=== PATIENT | female | born 1955 | race Hispanic/Latino ===

== ENCOUNTER 2021-11-20 12:00 | Inpatient (IN) | payer OTHER ==
[~2021-11-20] VITALS: Ht 154.9 cm; Wt 84.8 kg
[2021-11-20 12:24] LABS: BASOPHILS % (AUTO) 0.4 % (0.0-5.0); EOSINOPHILS % (AUTO) 0.7 % (0.0-8.0); HEMATOCRIT 46.3 % (36-48); LYMPHOCYTES % (AUTO) 25.5 % (21.0-51.0); MEAN CORPUSCULAR HEMOGLOBIN 31.3 pg (27.0-33.0); MEAN CORPUSCULAR HGB CONC 35.6 g/dL (32.0-36.0); MEAN CORPUSCULAR VOLUME 87.7 fL (79-99); MONOCYTES % (AUTO) 6.8 % (3.0-13.0); NEUTROPHILS % (AUTO) 63.9 % (40.0-77.0); NUCLEATED RED BLOOD CELLS 0.1 % (0.0-0.19); PLATELET COUNT (AUTO) 326 K/uL (130-400); RED BLOOD CELL COUNT(AUTO) 5.28 MIL/uL (4.00-5.50); RED CELL DISTRIBUTION WIDTH 13.7 % (11.0-15.5)
[2021-11-20 12:30] LABS: CREATININE 0.7 mg/dL (0.5-1.5)
[2021-11-20] MEDS ORDERED: FAMOTIDINE 20MG VIAL IV ONE (12:30)
[2021-11-20] MEDS ORDERED: ONDANSETRON 4MG INJ IVP ONE (12:30)
[2021-11-20] MEDS ORDERED: MORPHINE 4 MG SYG IVP ONE ×2 (12:30→14:30)
[2021-11-20] MEDS ORDERED: 0.9%NACL 1000ML 1,000 ML IV ONE (12:30)
[2021-11-20 12:34] LABS: ALBUMIN 3.5 g/dL (3.5-5.0); BILIRUBIN,TOTAL 0.9 mg/dL (0.2-1.0); TOTAL PROTEIN, SERUM 7.4 g/dL (6.0-8.3)
[2021-11-20] MEDS ORDERED: IOHEXOL 350 MG/ML 100ML INFUS..BTL IV ONE (13:14)
[2021-11-20] MEDS ORDERED: POTASSIUM BICARB/CIT AC 25 MEQ TABLET.EFF PO ONE (13:30)
[2021-11-20] MEDS ORDERED: CARB-38 PO (15:31)
[2021-11-20] MEDS ORDERED: LISI40TA9 PO (15:31)
[2021-11-20] MEDS ORDERED: POLY17PO4 PO (15:31)
[2021-11-20] MEDS ORDERED: ROPI1TAB13 PO (15:31)
[2021-11-20] MEDS ORDERED: MONT-39 PO (15:31)
[2021-11-20] MEDS ORDERED: FLUO40CA49 PO (15:31)
[2021-11-20] MEDS ORDERED: BUDE10.2 IH (15:31)
[2021-11-20] MEDS ORDERED: MILK500C PO (15:31)
[2021-11-20] MEDS ORDERED: ESOM40CA54 PO (15:31)
[2021-11-20] MEDS ORDERED: CHOL2000 PO (15:31)
[2021-11-20] MEDS ORDERED: METF-444 PO (15:31)
[2021-11-20] MEDS ORDERED: ASCO500W7 PO (15:31)
[2021-11-20] MEDS ORDERED: FISH1CAP27 PO (15:31)
[2021-11-20] MEDS ORDERED: THIAMINE HCL 100 MG/ML 2ML VIAL IVP SCH (16:00)
[2021-11-20] MEDS ORDERED: KETOROLAC 15MG/ML VIAL (15MG/ML) IV PRN (16:00)
[2021-11-20] MEDS ORDERED: KCL 20 MEQ ERTAB PO ONE (16:00)
[2021-11-20] MEDS: PANTOPRAZOLE 40 MG/VIAL IVP SCH (16:42)
[2021-11-20] MEDS: LACTATED RINGERS 1000ML 1,000 ML IV SCH (16:42)
[2021-11-20 16:53] LABS: APPEARANCE,URINE CLEAR (CLEAR); BILIRUBIN,URINE NEGATIVE (NEGATIVE); COLOR,URINE YELLOW (YELLOW); GLUCOSE, URINE (UA) NEGATIVE (NEGATIVE); KETONES,URINE 15 mg/dL (NEGATIVE); LEUKOCYTE ESTERASE ,URINE NEGATIVE (NEGATIVE); NITRATE,URINE NEGATIVE (NEGATIVE); OCCULT BLOOD,URINE NEGATIVE (NEGATIVE); PH,URINE 5.5 (5.0-8.0); PROTEIN,URINE NEGATIVE (NEGATIVE); UROBILINOGEN,URINE 0.2 mg/dL (0.2-1.0)
[2021-11-20 17:00] LABS: HEMOGLOBIN A1C 6.8 % (4.0-6.0)
[2021-11-20] MEDS: CARBIDOPA-LEVODOPA 25-100 TAB PO SCH ×2 (17:00→20:39)
[2021-11-20] MEDS: ROPINIROLE HCL 1 MG TABLET PO SCH ×2 (17:00→20:38)
[2021-11-20 17:06] LABS: INR 0.99 (0.85-1.15); PROTHROMBIN TIME 10.8 SEC (9.6-11.6)
[2021-11-20 17:07] LABS: PARTIAL THROMBOPLASTIN TIME 25.2 SEC (26.3-35.5)
[2021-11-20 17:11] LABS: CRP QUANTITATIVE 22.6 mg/L (0.00-9.0); MAGNESIUM 1.9 mg/dL (1.80-2.40)
[2021-11-20 17:31] LABS: B-TYPE NATRIURETIC PEPTIDE 11 pg/mL (0-100)
[2021-11-20 17:50] LABS: ERYTHROCYTE SEDIMENTATION RATE 2 MM/HR (0-30)
[2021-11-20] MEDS: BUDESONIDE 0.5 MG/2 ML INH IH SCH (19:40)
[2021-11-20] MEDS: HEPARIN 5,000 UNIT VIAL SQ SCH (19:43)
[2021-11-20 20:27] LABS: CREATININE 0.7 mg/dL (0.5-1.5); POTASSIUM 3.5 mmol/L (3.5-5.1)
[2021-11-20] MEDS: FISH OIL 1000 MG/CAP PO SCH (20:30)
[2021-11-20] MEDS: ASCORBIC ACID 500 MG TAB PO SCH (20:30)
[2021-11-21] MEDS: LACTATED RINGERS 1000ML 1,000 ML IV SCH ×3 (00:47→15:06)
[2021-11-21 05:43] LABS: BASOPHILS % (AUTO) 0.2 % (0.0-5.0); EOSINOPHILS % (AUTO) 2.3 % (0.0-8.0); HEMATOCRIT 40.4 % (36-48); MEAN CORPUSCULAR HGB CONC 34.4 g/dL (32.0-36.0); MONOCYTES % (AUTO) 5.5 % (3.0-13.0); NEUTROPHILS % (AUTO) 66.8 % (40.0-77.0); PLATELET COUNT (AUTO) 235 K/uL (130-400); RED BLOOD CELL COUNT(AUTO) 4.49 MIL/uL (4.00-5.50); RED CELL DISTRIBUTION WIDTH 14.2 % (11.0-15.5); WHITE BLOOD COUNT (AUTO) 12.4 K/uL (4.8-10.8)
[2021-11-21 05:58] LABS: PROTHROMBIN TIME 10.9 SEC (9.6-11.6)
[2021-11-21 05:59] LABS: ALBUMIN 2.6 g/dL (3.5-5.0); BILIRUBIN,TOTAL 0.9 mg/dL (0.2-1.0); CREATININE 0.6 mg/dL (0.5-1.5); MAGNESIUM 1.8 mg/dL (1.80-2.40); POTASSIUM 3.3 mmol/L (3.5-5.1)
[2021-11-21] MEDS ORDERED: KCL 20 MEQ ERTAB PO ONE (06:30)
[2021-11-21] MEDS: BUDESONIDE 0.5 MG/2 ML INH IH SCH ×2 (06:56→19:25)
[2021-11-21] MEDS: CARBIDOPA-LEVODOPA 25-100 TAB PO SCH ×4 (09:04→20:23)
[2021-11-21] MEDS: ROPINIROLE HCL 1 MG TABLET PO SCH ×4 (09:04→20:23)
[2021-11-21] MEDS: FISH OIL 1000 MG/CAP PO SCH ×2 (09:24→20:23)
[2021-11-21] MEDS: **HM**(Cholecalciferol (Vitamin D3) (Vitamin D3) 50 MCG PO SCH (09:24)
[2021-11-21] MEDS: HEPARIN 5,000 UNIT VIAL SQ SCH ×2 (09:24→20:25)
[2021-11-21] MEDS: MONTELUKAST SODIUM 10 MG TAB PO SCH (09:24)
[2021-11-21] MEDS: ASCORBIC ACID 500 MG TAB PO SCH ×2 (09:24→20:23)
[2021-11-21] MEDS: FLUOXETINE HCL 20 MG CAPSULE PO SCH (09:24)
[2021-11-21] MEDS ORDERED: GADOTERATE MEGLUMINE 10 MMOL/20 ML VIAL IV ONE (11:42)
[2021-11-21] MEDS: HYDROMORPHONE 0.5 MG SYG (0.5MG/0.5ML) IVP PRN (12:04)
[2021-11-21] MEDS: PANTOPRAZOLE 40 MG/VIAL IVP SCH (15:03)
[2021-11-21 16:30] VITALS: BP 111/57
[2021-11-21 19:20] VITALS: BP 115/53
[2021-11-21 23:05] VITALS: BP 112/60
[2021-11-22] VITALS (7 sets, daily range): BP systolic 111–134; BP diastolic 58–77
[2021-11-22] MEDS: LACTATED RINGERS 1000ML 1,000 ML IV SCH ×3 (00:52→16:03)
[2021-11-22 06:27] LABS: HEMATOCRIT 42.7 % (36-48); MEAN CORPUSCULAR HEMOGLOBIN 30.9 pg (27.0-33.0); MEAN CORPUSCULAR VOLUME 90.9 fL (79-99); RED BLOOD CELL COUNT(AUTO) 4.7 MIL/uL (4.00-5.50); RED CELL DISTRIBUTION WIDTH 14.1 % (11.0-15.5); WHITE BLOOD COUNT (AUTO) 11.3 K/uL (4.8-10.8)
[2021-11-22] MEDS: BUDESONIDE 0.5 MG/2 ML INH IH SCH ×2 (06:37→19:16)
[2021-11-22 06:57] LABS: ALBUMIN 2.9 g/dL (3.5-5.0); BILIRUBIN,TOTAL 0.9 mg/dL (0.2-1.0); CREATININE 0.6 mg/dL (0.5-1.5); POTASSIUM 3.5 mmol/L (3.5-5.1); TOTAL PROTEIN, SERUM 6.6 g/dL (6.0-8.3)
[2021-11-22] MEDS: HEPARIN 5,000 UNIT VIAL SQ SCH ×2 (08:00→20:46)
[2021-11-22] MEDS: **HM**(Cholecalciferol (Vitamin D3) (Vitamin D3) 50 MCG PO SCH (09:00)
[2021-11-22] MEDS: ROPINIROLE HCL 1 MG TABLET PO SCH ×4 (09:09→20:43)
[2021-11-22] MEDS: ASCORBIC ACID 500 MG TAB PO SCH ×2 (09:09→20:43)
[2021-11-22] MEDS: FISH OIL 1000 MG/CAP PO SCH ×2 (09:09→20:45)
[2021-11-22] MEDS: FLUOXETINE HCL 20 MG CAPSULE PO SCH (09:09)
[2021-11-22] MEDS: CARBIDOPA-LEVODOPA 25-100 TAB PO SCH ×4 (09:09→20:45)
[2021-11-22] MEDS: MONTELUKAST SODIUM 10 MG TAB PO SCH (09:10)
[2021-11-22] MEDS: HYDROMORPHONE 0.5 MG SYG (0.5MG/0.5ML) IVP PRN (10:51)
[2021-11-22] MEDS: PANTOPRAZOLE 40 MG/VIAL IVP SCH (16:03)
[2021-11-23] VITALS (12 sets, daily range): BP systolic 91–151; BP diastolic 46–78
[2021-11-23 04:18] LABS: BASOPHILS % (AUTO) 0.4 % (0.0-5.0); HEMATOCRIT 42.6 % (36-48); LYMPHOCYTES % (AUTO) 22.1 % (21.0-51.0); MEAN CORPUSCULAR HEMOGLOBIN 30.8 pg (27.0-33.0); MEAN CORPUSCULAR HGB CONC 34.5 g/dL (32.0-36.0); MEAN CORPUSCULAR VOLUME 89.3 fL (79-99); MONOCYTES % (AUTO) 6.4 % (3.0-13.0); NEUTROPHILS % (AUTO) 64.4 % (40.0-77.0); PLATELET COUNT (AUTO) 206 K/uL (130-400); RED BLOOD CELL COUNT(AUTO) 4.77 MIL/uL (4.00-5.50); RED CELL DISTRIBUTION WIDTH 13.7 % (11.0-15.5); WHITE BLOOD COUNT (AUTO) 9.6 K/uL (4.8-10.8)
[2021-11-23 04:27] LABS: CREATININE 0.6 mg/dL (0.5-1.5); POTASSIUM 3.6 mmol/L (3.5-5.1)
[2021-11-23] MEDS: BUDESONIDE 0.5 MG/2 ML INH IH SCH ×2 (06:00→18:36)
[2021-11-23] MEDS ORDERED: PROPOFOL 10 MG/ML 20ML VIAL IV ONE ×2 (07:12→07:29)
[2021-11-23] MEDS: **HM**(Cholecalciferol (Vitamin D3) (Vitamin D3) 50 MCG PO SCH (09:00)
[2021-11-23] MEDS: FLUOXETINE HCL 20 MG CAPSULE PO SCH (09:19)
[2021-11-23] MEDS: CARBIDOPA-LEVODOPA 25-100 TAB PO SCH ×2 (09:19→12:30)
[2021-11-23] MEDS: ASCORBIC ACID 500 MG TAB PO SCH (09:19)
[2021-11-23] MEDS: ROPINIROLE HCL 1 MG TABLET PO SCH ×2 (09:19→12:30)
[2021-11-23] MEDS: FISH OIL 1000 MG/CAP PO SCH (09:19)
[2021-11-23] MEDS: MONTELUKAST SODIUM 10 MG TAB PO SCH (09:19)
[2021-11-23] MEDS: HEPARIN 5,000 UNIT VIAL SQ SCH (09:21)
== END 2021-11-23 15:38 | disposition home or self-care (01) | DRG 438 ==
LOC: EDH 12:00 → EDHIP 16:00 → 2AH 11-21 10:27
PROVIDERS: ADMIT Hospitalist; ATTEND Hospitalist
PROC: 5A09357 Assistance with Respiratory Ventilation, Less than 24 Consecutive Hours, Continuous Positive Airway Pressure (ICD-10-PCS; 2021-11-20)
PROC: 5A09357 Assistance with Respiratory Ventilation, Less than 24 Consecutive Hours, Continuous Positive Airway Pressure (ICD-10-PCS; 2021-11-20)
PROC: 0DJ08ZZ Inspection of Upper Intestinal Tract, Via Natural or Artificial Opening Endoscopic (ICD-10-PCS; principal; 2021-11-23)
PROC: 0FBG3ZX Excision of Pancreas, Percutaneous Approach, Diagnostic (ICD-10-PCS; 2021-11-23)
DX: K85.90 Acute pancreatitis without necrosis or infection, unspecified (principal); U07.1 COVID-19; D68.59 Other primary thrombophilia; E44.0 Moderate protein-calorie malnutrition; K86.2 Cyst of pancreas; E86.1 Hypovolemia; E87.6 Hypokalemia; I10 Essential (primary) hypertension; E78.5 Hyperlipidemia, unspecified; E66.9 Obesity, unspecified; Z68.35 Body mass index [BMI] 35.0-35.9, adult; G20 Parkinson's disease; E86.0 Dehydration; E78.00 Pure hypercholesterolemia, unspecified; E11.9 Type 2 diabetes mellitus without complications; Z90.49 Acquired absence of other specified parts of digestive tract; Z90.710 Acquired absence of both cervix and uterus; J45.909 Unspecified asthma, uncomplicated; R54 Age-related physical debility; G47.33 Obstructive sleep apnea (adult) (pediatric)
CPT/HCPCS: 36415; 43235; 43238; 71045; 74177; 74183; 80048; 80053; 80061; 81003; 82550; 82728; 82948; 83036; 83615; 83690; 83735; 83880; 84145; 84443; 84484; 85025; 85027; 85378; 85610; 85651; 85730; 86140; 87040; 87635; 87804; 93005; 93970; 94640; 94664; A4606; C9113; C9803; G0378; J1170; J1644; J2270; J2405; J2704; J3411; J3490; J7030; J7120; Q9967

== ENCOUNTER → 2021-12-27 | Outpatient (CLI) | payer OTHER ==
[~2021-12-27] MED LIST: BUDE10.2 IH; CARB-38 PO; ESOM40CA54 PO; FISH1CAP27 PO; FLUO40CA49 PO; LISI40TA9 PO; METF-444 PO; MONT-39 PO; ROPI1TAB13 PO
== END | disposition home or self-care (01) ==
LOC: RAH 10:27
PROVIDERS: ATTEND Internal Medicine Gastroenterology
DX: R14.0 Abdominal distension (gaseous) (principal); R68.81 Early satiety
CPT/HCPCS: 78264; A9541

== ENCOUNTER → 2022-02-21 | Outpatient (CLI) | payer OTHER ==
[~2022-02-21] MED LIST changes: +GADOTERATE MEGLUMINE 10 MMOL/20 ML VIAL IV ONE
== END | disposition home or self-care (01) ==
LOC: RAH 10:53
PROVIDERS: ATTEND Psychiatry & Neurology Neurology
DX: G31.85 Corticobasal degeneration (principal); H74.90 Unspecified disorder of middle ear and mastoid, unspecified ear; I67.9 Cerebrovascular disease, unspecified
CPT/HCPCS: 70553; A9575

== ENCOUNTER 2022-10-16 10:17 | Emergency (ER) | payer OTHER ==
[~2022-10-16] VITALS: Ht 152.4 cm; Wt 81.6 kg
[~2022-10-16 10:17] MED LIST changes: -GADOTERATE MEGLUMINE 10 MMOL/20 ML VIAL IV ONE
[2022-10-16 10:33] VITALS: BP 145/70
[2022-10-16 11:09] LABS: APPEARANCE,URINE CLEAR (CLEAR); BILIRUBIN,URINE NEGATIVE (NEGATIVE); COLOR,URINE COLORLESS (YELLOW); GLUCOSE, URINE (UA) NEGATIVE (NEGATIVE); KETONES,URINE NEGATIVE (NEGATIVE); LEUKOCYTE ESTERASE ,URINE NEGATIVE Leu/uL (NEGATIVE); NITRATE,URINE NEGATIVE (NEGATIVE); OCCULT BLOOD,URINE NEGATIVE (NEGATIVE); PROTEIN,URINE NEGATIVE (NEGATIVE); UROBILINOGEN,URINE 0.2 mg/dL (0.2-1.0)
[2022-10-16 11:33] LABS: BASOPHILS % (AUTO) 0.4 % (0.0-5.0); EOSINOPHILS % (AUTO) 1.6 % (0.0-8.0); HEMATOCRIT 42.5 % (36-48); LYMPHOCYTES % (AUTO) 28.3 % (21.0-51.0); MEAN CORPUSCULAR HEMOGLOBIN 30.7 pg (27.0-33.0); MEAN CORPUSCULAR HGB CONC 33.4 g/dL (32.0-36.0); MEAN CORPUSCULAR VOLUME 91.8 fL (79-99); NEUTROPHILS % (AUTO) 62.2 % (40.0-77.0); PLATELET COUNT (AUTO) 216 K/uL (130-400); RED BLOOD CELL COUNT(AUTO) 4.63 MIL/uL (4.00-5.50); RED CELL DISTRIBUTION WIDTH 14.5 % (11.0-15.5); WHITE BLOOD COUNT (AUTO) 8.3 K/uL (4.8-10.8)
[2022-10-16 11:43] LABS: CREATININE 0.6 mg/dL (0.5-1.5); POTASSIUM 4.2 mmol/L (3.5-5.1)
[2022-10-16 11:48] LABS: TOTAL PROTEIN, SERUM 7.7 g/dL (6.0-8.3)
[2022-10-16] MEDS ORDERED: IOHEXOL-350 75 ML VIAL IV ONE (13:31)
[2022-10-16] MEDS ORDERED: KETOROLAC 15MG/ML VIAL (15MG/ML) IV ONE (14:30)
== END 2022-10-16 14:45 | disposition home or self-care (01) ==
LOC: EDH 10:17
DX: R10.9 Unspecified abdominal pain (principal); E11.9 Type 2 diabetes mellitus without complications; E78.00 Pure hypercholesterolemia, unspecified; I10 Essential (primary) hypertension; Z79.51 Long term (current) use of inhaled steroids; Z79.84 Long term (current) use of oral hypoglycemic drugs; Z79.899 Other long term (current) drug therapy; Z86.16 Personal history of COVID-19; Z90.49 Acquired absence of other specified parts of digestive tract
CPT/HCPCS: 99285; 74177; 96374; 80053; 85025; 83605; 81003; 36415; J1885; Q9967

== ENCOUNTER 2023-11-26 13:28 | Emergency (ER) | payer OTHER ==
[~2023-11-26] VITALS: Ht 154.9 cm; Wt 81.6 kg
[~2023-11-26 13:28] MED LIST changes: -ESOM40CA54 PO; +ESOM40CA66 PO; -ROPI1TAB13 PO; +ROPI1TAB46 PO
[2023-11-26 14:11] LABS: BASOPHILS # (AUTO) 0.03 K/uL (0.00-0.20); BASOPHILS % (AUTO) 0.3 % (0.0-5.0); EOSINOPHILS # (AUTO) 0.13 K/uL (0.00-0.70); EOSINOPHILS % (AUTO) 1.3 % (0.0-8.0); HEMATOCRIT 42.6 % (36-48); IMMATURE GRANULOCYTE ABSOLUTE 0.03 K/uL (0-1); LYMPHOCYTES # (AUTO) 3.6 K/uL (1.0-4.8); MEAN CORPUSCULAR HEMOGLOBIN 31.7 pg (27.0-33.0); MEAN CORPUSCULAR HGB CONC 34.3 g/dL (32.0-36.0); MEAN CORPUSCULAR VOLUME 92.4 fL (79-99); MONOCYTES # (AUTO) 0.8 K/uL (0.1-1.0); MONOCYTES % (AUTO) 7.5 % (3.0-13.0); NEUTROPHILS # (AUTO) 5.7 K/uL (1.8-7.7); NEUTROPHILS % (AUTO) 55.6 % (40.0-77.0); PLATELET COUNT (AUTO) 221 K/uL (130-400); RED BLOOD CELL COUNT(AUTO) 4.61 MIL/uL (4.00-5.50); RED CELL DISTRIBUTION WIDTH 13.8 % (11.0-15.5); WHITE BLOOD COUNT (AUTO) 10.2 K/uL (4.8-10.8)
[2023-11-26 14:13] LABS: APPEARANCE,URINE CLEAR (CLEAR); BILIRUBIN,URINE NEGATIVE (NEGATIVE); COLOR,URINE YELLOW (YELLOW); GLUCOSE, URINE (UA) NEGATIVE (NEGATIVE); KETONES,URINE 5 mg/dL (NEGATIVE); LEUKOCYTE ESTERASE ,URINE NEGATIVE Leu/uL (NEGATIVE); NITRATE,URINE NEGATIVE (NEGATIVE); OCCULT BLOOD,URINE NEGATIVE (NEGATIVE); PH,URINE 6.5 (5.0-8.0); PROTEIN,URINE 20 mg/dL (NEGATIVE); UROBILINOGEN,URINE 0.2 mg/dL (0.2-1.0)
[2023-11-26 14:38] LABS: CREATININE 0.6 mg/dL (0.5-1.0); POTASSIUM 4.3 mmol/L (3.5-5.1)
[2023-11-26 14:40] LABS: ADD UA MICROSCOPIC YES
[2023-11-26 14:41] LABS: MUCUS,URINE RARE LPF (None Seen); SQUAMOUS EPITHELIAL CELL,UR RARE /HPF (0-2)
[2023-11-26 14:42] LABS: BILIRUBIN,TOTAL 0.6 mg/dL (0.2-1.0)
[2023-11-26] MEDS ORDERED: IOHEXOL 350 MG/ML 100ML INFUS..BTL IV ONE (15:29)
[2023-11-26] MEDS: MAG/ALUM/SIMETH 30 ML UDCUP PO ONE (18:00)
[2023-11-26] MEDS: LIDOCAINE HCL 2% VISCOUS 15 ML UDCUP PO ONE (18:00)
[2023-11-26] MEDS: PANTOPRAZOLE 40 MG/VIAL IVP ONE (18:00)
[2023-11-26] MEDS: 0.9%NACL 1000ML 1,000 ML IV ONE (18:00)
[2023-11-26 18:05] VITALS: BP 145/64; PULSE 67; RESP 20; O2SAT 99
== END 2023-11-26 18:04 | disposition home or self-care (01) ==
LOC: EDH 13:28
DX: R10.13 Epigastric pain (principal); K21.9 Gastro-esophageal reflux disease without esophagitis; E11.9 Type 2 diabetes mellitus without complications; E78.00 Pure hypercholesterolemia, unspecified; I10 Essential (primary) hypertension; K31.84 Gastroparesis; Z79.51 Long term (current) use of inhaled steroids; Z79.84 Long term (current) use of oral hypoglycemic drugs; Z79.899 Other long term (current) drug therapy; Z86.16 Personal history of COVID-19; Z90.49 Acquired absence of other specified parts of digestive tract; Z90.710 Acquired absence of both cervix and uterus
CPT/HCPCS: 99285; 74177; 96374; 71045; 80053; 83690; 85025; 81001; 36415; 93005; J7030; Q9967

== ENCOUNTER 2024-03-24 06:58 | Day surgery (SDC) | payer OTHER ==
[~2024-03-24] VITALS: Ht 154.9 cm; Wt 81.6 kg
[2024-03-24] VITALS (10 sets, daily range): BP systolic 87–166; BP diastolic 43–67; PULSE 55–72; RESP 14–20; TEMP 97.4–97.9
[~2024-03-24 06:58] MED LIST changes: -BUDE10.2 IH; +CHOL200013 PO; -ESOM40CA66 PO; +EZET10TA48 PO; +FAMO40TA7 PO; -METF-444 PO; +METF-446 PO; +OMEP40CA21 PO
[2024-03-24] MEDS: 0.9%NACL 1000ML 1,000 ML IV ONE (08:15)
[2024-03-24] MEDS ORDERED: proPOFol 10 MG/ML 20ML VIAL IV ONE ×3 (08:34→09:04)
== END 2024-03-24 10:15 | disposition home or self-care (01) ==
LOC: DAH 06:58
PROVIDERS: ATTEND Internal Medicine Gastroenterology
DX: K74.02 Hepatic fibrosis, advanced fibrosis (principal); K75.81 Nonalcoholic steatohepatitis (NASH); R74.01 Elevation of levels of liver transaminase levels; K44.9 Diaphragmatic hernia without obstruction or gangrene; K86.2 Cyst of pancreas; R74.8 Abnormal levels of other serum enzymes; R93.3 Abnormal findings on diagnostic imaging of other parts of digestive tract; R93.2 Abnormal findings on diagnostic imaging of liver and biliary tract; K31.84 Gastroparesis; K59.04 Chronic idiopathic constipation; K85.00 Idiopathic acute pancreatitis without necrosis or infection; K57.30 Diverticulosis of large intestine without perforation or abscess without bleeding; R76.0 Raised antibody titer; I10 Essential (primary) hypertension; E78.5 Hyperlipidemia, unspecified; F32.A Depression, unspecified; J45.909 Unspecified asthma, uncomplicated; E11.9 Type 2 diabetes mellitus without complications; F41.9 Anxiety disorder, unspecified; M19.90 Unspecified osteoarthritis, unspecified site; G20.A1 Parkinson's disease without dyskinesia, without mention of fluctuations; Z90.49 Acquired absence of other specified parts of digestive tract; Z90.710 Acquired absence of both cervix and uterus; Z88.8 Allergy status to other drugs, medicaments and biological substances; Z86.0100 Personal history of colon polyps, unspecified; Z79.84 Long term (current) use of oral hypoglycemic drugs; Z79.899 Other long term (current) drug therapy
CPT/HCPCS: 43238; 82948 ×2; J7030; J2704 ×3; A4620; A4215 ×3; A4223; A4222; A4221; A4663; A4606; J3490

== ENCOUNTER → 2024-07-28 | Outpatient (CLI) | payer OTHER ==
[2024-07-28 10:36] LABS: CREATININE 0.6 mg/dL (0.5-1.0)
== END | disposition home or self-care (01) ==
LOC: LAB 09:45
PROVIDERS: ATTEND Internal Medicine Gastroenterology
DX: K86.2 Cyst of pancreas (principal)
CPT/HCPCS: 36415; 82565; 84520

== ENCOUNTER → 2024-08-18 | Outpatient (CLI) | payer OTHER ==
[~2024-08-18] MED LIST changes: +IOHEXOL 350 MG/ML 100ML INFUS..BTL IV ONE
--- NOTE | 2024-08-18 10:43 | HMCIMG ---
CT ABDOMEN W/WO 3 PHASE HISTORY: Pancreatic cyst COMPARISON: None TECHNIQUE: Multiple sequential axial images of the abdomen were obtained from the dome of the diaphragm through iliac crests. Patient was given 100 cc of Isovue through intravenous route. Oral contrast was given. FINDINGS: No pleural effusion is seen bilaterally. There is no evidence of parenchymal disease or pulmonary nodule of the visualized lower lungs. Degenerative changes are seen of the thoracolumbar spine. Liver measured 13 cm. Postcholecystectomy changes are seen. No bowel obstruction is seen. Stable cystic structure is seen in the body of the pancreas measures 7 mm unchanged. The liver, spleen, adrenal glands are unremarkable. There is no evidence of hydronephrosis bilaterally. No evidence of renal stone is seen. Fecal material is seen in the colon. There are normal-sized retroperitoneal and mesenteric lymph nodes. No ascites is seen. Atherosclerotic changes are present. IMPRESSION: 1. Stable cystic structure is seen in the body of the pancreas measures [address] was performed with one or more following dose reduction techniques: automated exposure control, adjustment of the mA and kv according to patient's size, or use of a iterative reconstruction technique.
== END | disposition home or self-care (01) ==
LOC: RAH 08:03
PROVIDERS: ATTEND Internal Medicine Gastroenterology
DX: K86.2 Cyst of pancreas (principal); K76.89 Other specified diseases of liver; I70.90 Unspecified atherosclerosis; M47.815 Spondylosis without myelopathy or radiculopathy, thoracolumbar region; Z90.49 Acquired absence of other specified parts of digestive tract
CPT/HCPCS: 74170; Q9967

== ENCOUNTER 2025-01-25 11:14 | Emergency (ER) | payer OTHER ==
[~2025-01-25] VITALS: Ht 154.9 cm; Wt 71.7 kg
[~2025-01-25 11:14] MED LIST changes: -IOHEXOL 350 MG/ML 100ML INFUS..BTL IV ONE; +LISI40TA15 PO; -LISI40TA9 PO
[2025-01-25 11:21] VITALS: TEMP 97.7
[2025-01-25 12:41] LABS: IMMATURE GRANULOCYTE ABSOLUTE 0.03 K/uL (0-1); NUCLEATED RED BLOOD CELLS 0.0 % (0.0-0.19); PLATELET COUNT (AUTO) 208 K/uL (130-400); RED BLOOD CELL COUNT(AUTO) 4.49 MIL/uL (4.00-5.50); RED CELL DISTRIBUTION WIDTH 13.3 % (11.0-15.5); WHITE BLOOD COUNT (AUTO) 6.6 K/uL (4.8-10.8)
[2025-01-25 12:50] LABS: CREATININE 0.8 mg/dL (0.5-1.0); GLOMERULAR FILTR. RATE CALC 81.0 mL/min (>90); GLUCOSE,RANDOM 92.0 mg/dL (70-105); SODIUM SERUM 129.0 mmol/L (136-145); UREA NITROGEN, BLOOD 7.0 mg/dL (7-18)
[2025-01-25 12:54] LABS: ASPARTATE AMINOTRANSFERASE 46.0 U/L (10-37); TOTAL PROTEIN, SERUM 7.4 g/dL (6.0-8.3)
--- NOTE | 2025-01-25 13:26 | HMCIMG ---
EXAM: CT Abdomen and Pelvis Without IV contrast CLINICAL HISTORY: diffuse abdominal pain TECHNIQUE: Axial computed tomography images of the abdomen and pelvis without intravenous contrast. CONTRAST: No IV contrast. COMPARISON: Study dated 11/26/23. FINDINGS: LUNG BASES: The lung bases appear clear. No pleural effusions are seen. LIVER: Unremarkable. GALLBLADDER AND BILE DUCTS: Post cholecystectomy status. No biliary ductal dilatation is evident. PANCREAS: Unremarkable. SPLEEN: Unremarkable. ADRENAL GLANDS: Unremarkable. KIDNEYS, URETERS, AND BLADDER: The kidneys appear within normal limits. There is no hydronephrosis or hydroureter. No urinary calculi are seen. STOMACH AND BOWEL: Colonic diverticulosis without diverticulitis. Unremarkable appearance of the stomach and bowel. No evidence of bowel obstruction. No evidence suggesting enteritis or colitis. PERITONEUM: No free fluid. No free air. LYMPH NODES: No lymphadenopathy is evident. REPRODUCTIVE: The uterus is not visualized. VASCULATURE: Atherosclerotic changes in the form of eccentric vessel wall calcification in the abdominal aorta and its major branches. No evidence of abdominal aortic aneurysm. BONES: Degenerative changes in the visualized spine in the form of marginal osteophytes and degenerative discs at multiple lumbar levels. No aggressive appearing osseous lesion. No acute osseous pathology evident. IMPRESSION: 1. No acute intra-abdominal or pelvic pathology. 2. Colonic diverticulosis without diverticulitis. /[facility]
--- NOTE | 2025-01-25 15:04 | ERN ---
ED Note History of Present Illness Stated Complaint: ABDOMINAL PAIN Chief Complaint: Abdominal Pain Time Seen by MD: 11:33 Time Seen by Midlevel: 11:36 Dictation: 69-year-old female with a history of Parkinson's, thrombosis of the liver and gastroparesis coming in with complaints of vomiting for two days. Patient states she saw her GI doctor quinton was told he could possibly have diverticulitis and put her on Cipro and Flagyl. Patient states he has symptoms started after starting the antibiotics. Allergies: Coded Allergies: No Known Allergies (Unverified Allergy, Unknown, 11/20/21) atorvastatin (Unverified Allergy, Unknown, 10/16/22) cortez (Unverified Allergy, Unknown, 10/16/22) niacin (Unverified Allergy, Unknown, 10/16/22) Home Meds Reported Medications Cholecalciferol (Vitamin D3) (Vitamin D3) 50 Mcg (2000 Unit) Capsule, 1 CAP PO DAILY for 30 Days, #30 CAP 0 Refills 03/21/24 Famotidine (Famotidine) 40 Mg Tablet, 1 TAB PO DAILY for 30 Days, #30 TAB 0 Refills 03/21/24 Metformin HCl (Metformin HCl) 1,000 Mg Tablet, 1 TAB PO BID for 30 Days, #60 TAB 0 Refills 03/21/24 Omeprazole (Omeprazole) 40 Mg Capsule.dr, 1 CAP PO DAILY for 30 Days, #30 CAP 0 Refills 03/21/24 Ropinirole HCl (Ropinirole HCl) 1 Mg Tablet, 1 MG PO TID, TAB 03/21/24 Ezetimibe (Ezetimibe) 10 Mg Tablet, 1 TAB PO DAILY for 30 Days, #30 TAB 0 Refills 03/21/24 [place]-3 Fatty Acids/Fish Oil ([place] 3 1,000 mg Softgel) 1 Each Capsule, 2 EACH PO BID, CAP 11/20/21 Lisinopril (Lisinopril) 40 Mg Tablet, 40 MG PO DAILY, TAB 11/20/21 Fluoxetine HCl (Fluoxetine HCl) 40 Mg Capsule, 40 MG PO DAILY, CAP 11/20/21 Carbidopa/Levodopa (Carbidopa-Levo 25-100 mg Odt) 1 Each Tab.rapdis, 2 EACH PO QID, TAB 11/20/21 Montelukast Sodium (Montelukast Sodium) 10 Mg Tablet, 10 MG PO DAILY, TAB 11/20/21 Past Medical History Past Medical History: Diverticulitis, Liver Disease, Other Additional Past Medical Hx: parkinsons, liver fibrosis, gastropereis Surgical History: Hysterectomy, Cholecystectomy Review of System Dictation Constitutional: Negative for fever,chills, and weight loss Eyes: Negative for injury, pain,redness, and discharge ENT: Negative for injury,pain or swelling Cardiovascular: Negative for chest pain, palpitations, and edema Respiratory: Negative for shortness of breath, cough, and wheezing, Abdomen/GI: Abdominal pain nausea and vomiting Back: Negative for injury and pain : Negative for injury, bleeding and discharge MS/Extremity: Negative for injury and deformity Skin: Negative for rash, and discoloration Neuro: Negative for headache, weakness, numbness, tingling, and seizure Psych: Negative for suicide ideation, homicidal ideation, and hallucinations Review of Systems: was completed Initial Vital Sign VS Vital Signs Date Time Temp Pulse Resp B/P (MAP) Pulse Ox O2 Delivery O2 Flow Rate FiO2 01/25/25 11:18 97.7 84 16 138/72 97 Room Air 0 01/25/25 11:21 21 Physical Exam Dictation General: awake, alert, NAD Head/Face: Normocephalic, atraumatic Eyes: PERRL, EOMI, vision at baseline ENT: oral cavity clear, TMs clear, no signs of infection Neck: Trachea midline, supple, no nuchal rigidity Cardiovascular: RRR, normal S1/S2, No MRGs, no JVD Respiratory: CTAB, no respiratory distress, No rales or wheezes Abdomen: Soft, non-tender, non-distended, normal bowel sounds, no guarding or rebound. Skin: Warm, dry, normal turgor, no rash MS/Extremity: Pulses equal, no cyanosis, neurovascular intact, FROM Neuro: COAx4, GCS 15, strength 5/5, CN 2-12 intact, normal cerebellar exam, normal gait, Psych: Normal behavior, mood, and affect normal Results (Laboratory/Radiology) Laboratory/Radiology Laboratory Tests Test 01/25/25 12:32 White Blood Count 6.6 K/uL (4.8-10.8) Red Blood Count 4.49 MIL/uL (4.00-5.50) Hemoglobin 14.1 g/dL (12.0-16.0) Hematocrit 39.7 % (36-48) Mean Corpuscular Volume 88.4 fL (79-99) Mean Corpuscular Hemoglobin 31.4 pg (27.0-33.0) Mean Corpuscular Hemoglobin Concent 35.5 g/dL (32.0-36.0) Red Cell Distribution Width 13.3 % (11.0-15.5) Platelet Count 208 K/uL (130-400) Mean Platelet Volume 9.7 fL (7.5-10.5) Immature Granulocyte % (Auto) 0.5 % (0-1) Neutrophils (%) (Auto) 57.4 % (40.0-77.0) Lymphocytes (%) (Auto) 31.9 % (21.0-51.0) Monocytes (%) (Auto) 9.2 % (3.0-13.0) Eosinophils (%) (Auto) 0.5 % (0.0-8.0) Basophils (%) (Auto) 0.5 % (0.0-5.0) Neutrophils # (Auto) 3.8 K/uL (1.8-7.7) Lymphocytes # (Auto) 2.1 K/uL (1.0-4.8) Monocytes # (Auto) 0.6 K/uL (0.1-1.0) Eosinophils # (Auto) 0.03 K/uL (0.00-0.70) Basophils # (Auto) 0.03 K/uL (0.00-0.20) Absolute Immature Granulocyte (auto 0.03 K/uL (0-1) Nucleated Red Blood Cells 0.0 % (0.0-0.19) Sodium Level 129 mmol/L (136-145) L Potassium Level 3.7 mmol/L (3.5-5.1) Chloride Level 95 mmol/L (101-111) L Carbon Dioxide Level 24 mmol/L (21-32) Blood Urea Nitrogen 7 mg/dL (7-18) Creatinine 0.8 mg/dL (0.5-1.0) Glomerular Filtration Rate Calc 81 mL/min (>90) Random Glucose 92 mg/dL (70-105) Total Calcium 8.8 mg/dL (8.5-10.1) Total Bilirubin 0.8 mg/dL (0.2-1.0) Direct Bilirubin 0.2 mg/dL (0.0-0.3) Aspartate Amino Transf (AST/SGOT) 46 U/L (10-37) H Alanine Aminotransferase (ALT/SGPT) 23 U/L (12-78) Alkaline Phosphatase 96 U/L (50-136) Troponin I High Sensitivity 4 ng/L (4-50) Total Protein 7.4 g/dL (6.0-8.3) Albumin 3.9 g/dL (3.5-5.0) Lipase 29 U/L (16-77) CT Scan Comment: [facility] [id number] [place] [address] IMAGING REPORT Signed PATIENT: KRISTEN DEL REAL MR#: [id number] : 1955 SEX: F AGE: 69 LOCATION: [facility] ORDER 112 STATUS: REG ER REPORT#: [id number] SERVICE [id number] REASON: diffuse abdominal pain ORDERING PHYSICIAN: CLIFF CEJA MD PROCEDURE: ABD PELVWO - CT ABD/PEL WO CON RENAL/APPY EXAM: CT Abdomen and Pelvis Without IV contrast CLINICAL HISTORY: diffuse abdominal pain TECHNIQUE: Axial computed tomography images of the abdomen and pelvis without intravenous contrast. CONTRAST: No IV contrast. COMPARISON: Study dated 11/26/23. FINDINGS: LUNG BASES: The lung bases appear clear. No pleural effusions are seen. LIVER: Unremarkable. GALLBLADDER AND BILE DUCTS: Post cholecystectomy status. No biliary ductal dilatation is evident. PANCREAS: Unremarkable. SPLEEN: Unremarkable. ADRENAL GLANDS: Unremarkable. KIDNEYS, URETERS, AND BLADDER: The kidneys appear within normal limits. There is no hydronephrosis or hydroureter. No urinary calculi are seen. STOMACH AND BOWEL: Colonic diverticulosis without diverticulitis. Unremarkable appearance of the stomach and bowel. No evidence of bowel obstruction. No evidence suggesting enteritis or colitis. PERITONEUM: No free fluid. No free air. LYMPH NODES: No lymphadenopathy is evident. REPRODUCTIVE: The uterus is not visualized. VASCULATURE: Atherosclerotic changes in the form of eccentric vessel wall calcification in the abdominal aorta and its major branches. No evidence of abdominal aortic aneurysm. BONES: Degenerative changes in the visualized spine in the form of marginal osteophytes and degenerative discs at multiple lumbar levels. No aggressive appearing osseous lesion. No acute osseous pathology evident. IMPRESSION: 1. No acute intra-abdominal or pelvic pathology. 2. Colonic diverticulosis without diverticulitis. /[facility] DICTATED BY: BC ADAME Jr., MD DATE: 01/25/251424 ELECTRONICALLY SIGNED BY: BC ADAME Jr., MD DATE: 01/25/251424 ED Course ED Course Orders Procedure Category Date Status Time 12 Lead Ekg Tracing- EKG 01/25/25 Logged Technical 11:27 Basic Metabolic Panel LAB 01/25/25 Complete 11:27 Cbc With Differential LAB 01/25/25 Complete 11:27 Hepatic Function Panel LAB 01/25/25 Complete 11:27 Lipase LAB 01/25/25 Complete 11:27 Troponin I High LAB 01/25/25 Complete Sensitivity 11:27 Urinalysis Profile LAB 01/25/25 Logged 11:27 Ct Abd/Pel Wo Con CT 01/25/25 Resulted Renal/Appy 11:27 Vital Signs Date Time Temp Pulse Resp B/P (MAP) Pulse Ox O2 Delivery O2 Flow Rate FiO2 01/25/25 13:54 73 17 113/62 98 Room Air* 0 01/25/25 12:49 69 17 127/37 96 Room Air* 0 01/25/25 11:21 97.7 84 16 138/72 97 Room Air* 0 01/25/25 11:18 97.7 84 16 138/72 97 Room Air 0 Medical Decision Making MDM MDM: 69-year-old female with a history of Parkinson's, thrombosis of the liver and gastroparesis coming in with complaints of vomiting for two days. Patient states she saw her GI doctor quinton was told he could possibly have diverticulitis and put her on Cipro and Flagyl. Patient states he has symptoms started after starting the antibiotics. CBC shows a leukocytosis, no anemia, no thrombocytopenia. Chemistry shows hyponatremia at 1:29 a.m., normal potassium 3.7. Kidney function within normal range. Transaminitis. Lipase within normal range. CT scan shows no acute findings. Discussed findings with the patient. Educated patient the symptoms that she is feeling more than likely related to the antibiotics that she is taking maybe there little too harsh. Educated to add probiotics daily to help with her intestinal floor and stopped the antibiotics. It and follow up with the GI in the next 1-2 days. Patient verbalized understanding, answered all questions. Differential diagnosis: Diverticulitis, gastroenteritis, medication reaction Rationale: Tests considered and ordered secondary to shared decision making include: Previous outside records reviewed: Old ER visits. Risk of complication and/or morbidity or mortality of patient management: None Medications-Per medication reconciliation Need for hospitalization: Patient does not meet criteria for hospitalization. Need for emergency major/minor surgery: No There are no social concerns with this patient. Prescription drug management Prescriptions will include symptomatic care Patient's prior external medical records from other ER visits were reviewed by me as indicated. Prior testing and results from previous visits were reviewed. Prior tests were taken into account with medical decision making and resource utilization, independent historian/historians were used to obtain complete medical history. I independently interpreted the test that were performed, results were reviewed by me and considered findings on radiology if ordered. Medical management and examination interpretation discussions were had by me with other qualified healthcare professionals as indicated for the patient's care. DX & DISP Disposition: Discharge Departure Impression: Primary Impression: Abdominal pain Condition: Stable Additional Instructions: Follow up with your dry color tester in 1-2 days. Return to the hospital if you are unable to keep any fluids down. Try starting probiotics to help with the intestinal baljeet. Referrals: MAGI CHAVES MD (PCP) Time of Disposition: 15:02 I have reviewed the case, and I agree with, Diagnosis and Plan KATIE RIGGINS NP Jan 25, 2025 15:04
[2025-01-25 15:05] VITALS: BP 112/59; PULSE 72; RESP 17; O2SAT 98
--- NOTE | 2025-01-25 15:07 | EKG ---
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
[2025-01-25 15:17] LABS: APPEARANCE,URINE CLEAR (CLEAR); GLUCOSE, URINE (UA) NEGATIVE (NEGATIVE); LEUKOCYTE ESTERASE ,URINE 75 Leu/uL (NEGATIVE); NITRATE,URINE NEGATIVE (NEGATIVE); OCCULT BLOOD,URINE NEGATIVE (NEGATIVE)
[2025-01-25 15:19] LABS: ADD UA MICROSCOPIC YES
[2025-01-25 15:21] LABS: SQUAMOUS EPITHELIAL CELL,UR RARE /HPF (0-2)
== END 2025-01-25 15:35 | disposition home or self-care (01) ==
LOC: EDH 11:14
DX: R10.9 Unspecified abdominal pain (principal); Z79.84 Long term (current) use of oral hypoglycemic drugs; Z79.899 Other long term (current) drug therapy; Z90.49 Acquired absence of other specified parts of digestive tract; Z90.710 Acquired absence of both cervix and uterus
CPT/HCPCS: 36415; 74176; 80048; 80076; 81001; 83690; 84484; 85025; 87086; 93005; 99284